=== PATIENT | female | born 1960 | race American Indian/Alaskan Native ===

== ENCOUNTER 2019-04-23 09:30 | Emergency (ER) | payer BC ==
[2019-04-23 10:36] LABS: Basophils % (Auto) 0.3 % (0.0-1.8); Eosinophils # (Auto) 0.1 K/mm3 (0.0-0.4); Eosinophils % (Auto) 1.6 % (0.0-4.3); Hematocrit 32.8 % (30.3-42.9); Hemoglobin 10.9 gm/dl (10.1-14.3); Lymphocytes # (Auto) 2.2 K/mm3 (1.2-5.4); Lymphocytes % (Auto) 31.3 % (13.4-35.0); Mean Corpuscular HGB Conc 33 % (30-34); Mean Corpuscular Volume 86 fl (79-97); Monocytes # (Auto) 0.5 K/mm3 (0.0-0.8); Platelet Count 252 K/mm3 (140-440); Red Blood Count 3.83 M/mm3 (3.65-5.03); Red Cell Distribution Width 15.4 % (13.2-15.2)
[2019-04-23 10:59] LABS: Alanine Aminotransferase 151 units/L (7-56); Albumin 4.5 g/dL (3.9-5); BUN/Creatinine Ratio 19; Blood Urea Nitrogen 13 mg/dL (7-17); Calcium 10.1 mg/dL (8.4-10.2); Hemolysis Index 0
[2019-04-23 11:09] LABS: Bilirubin,Urine NEG (Negative); Blood,Urine NEG (Negative); Color,Urine Yellow (Yellow); Mucus,Urine FEW /HPF; Protein,Urine <15 mg/dL mg/dL (Negative); Urobilinogen,Urine < 2.0 mg/dL (<2.0); WBC,Urine < 1.0 /HPF (0.0-6.0)
[2019-04-23] MEDS ORDERED: ONDANSETRON 4 MG/2 ML INJ IV ONE (11:49)
[2019-04-23] MEDS ORDERED: SODIUM CHLORIDE 0.9% 500 ML 500 ML IV ONE (11:49)
[2019-04-23] MEDS ORDERED: HYDROmorphone 1 MG/1 ML INJ IV ONE ×2 (11:49→14:15)
--- NOTE | 2019-04-23 11:51 | Emergency Department Report ---
ED Abdominal Pain HPI - General Chief Complaint: Abdominal Pain Stated Complaint: ABD PAIN Time Seen by Provider: 04/23/19 11:25 Source: patient, RN notes reviewed, old records reviewed Mode of arrival: Ambulatory Limitations: No Limitations - History of Present Illness Initial Comments: The patient is a 58-year-old female. She is not known to myself previously. She has a history of diabetes, hypertension, pancreatitis and cholecystectomy. Her primary care doctor is Dr. 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 She reports that she does not know where the pancreatitis came from. Today, she presents to the ER with a complaint of epigastric pain, right upper quadrant pain that radiates to the back, nausea, malaise and fatigue. Pain is sharp, throbbing, increases with palpation and decreases with rest and position. No fever or chills, no lower abdominal pain, no urinary symptoms, no chest pain, no shortness of breath, no pulmonary embolism or DVT risk factors. Her pain feels similar to prior episodes of pancreatitis. MD Complaint: abdominal pain -: Gradual Location: epigastric Radiation: back Severity scale (0 -10): 5 Quality: other Consistency: other Improves With: other Worsens With: other Associated Symptoms: nausea, vomiting - Related Data Previous Rx's Medication Instructions Recorded Last Taken Type Metoclopramide [Reglan] 10 mg PO QID PRN #30 tab 04/23/19 Unknown Rx oxyCODONE /ACETAMINOPHEN [Percocet 1 tab PO Q4HR PRN #15 tab 04/23/19 Unknown Rx 5/325] Allergies Allergy/AdvReac Type Severity Reaction Status Date / Time No Known Allergies Allergy Verified 04/23/19 09:33 ED Review of Systems ROS: Stated complaint: ABD PAIN Other details as noted in HPI Constitutional: malaise. denies: fever Eyes: denies: eye discharge ENT: denies: congestion Cardiovascular: denies: chest pain, syncope Gastrointestinal: abdominal pain, nausea, vomiting. denies: hematemesis, melena, hematochezia Genitourinary: as per HPI. denies: dysuria Musculoskeletal: back pain Skin: as per HPI Neurological: as per HPI Psychiatric: as per HPI Hematological/Lymphatic: as per HPI ED Past Medical Hx - Past Medical History Hx Hypertension: Yes Hx Diabetes: Yes - Surgical History Past Surgical History?: Yes Additional Surgical History: gallbladder - Social History Smoking Status: Never Smoker Substance Use Type: None - Medications Home Medications: Home Medications Medication Instructions Recorded Confirmed Last Taken Type Metoclopramide [Reglan] 10 mg PO QID PRN #30 tab 04/23/19 Unknown Rx oxyCODONE /ACETAMINOPHEN [Percocet 1 tab PO Q4HR PRN #15 tab 04/23/19 Unknown Rx 5/325] ED Physical Exam - General Limitations: No Limitations General appearance: alert, in no apparent distress - Head Head exam: Present: atraumatic, normocephalic - Eye Eye exam: Present: normal appearance, EOMI. Absent: nystagmus - ENT ENT exam: Present: normal exam, normal orophraynx, mucous membranes moist, normal external ear exam - Neck Neck exam: Present: normal inspection, full ROM. Absent: tenderness, meningismus - Respiratory Respiratory exam: Present: normal lung sounds bilaterally. Absent: respiratory distress - Cardiovascular Cardiovascular Exam: Present: regular rate, normal rhythm, normal heart sounds. Absent: bradycardia, tachycardia, irregular rhythm, systolic murmur, diastolic murmur, rubs, gallop - GI/Abdominal GI/Abdominal exam: Present: soft, tenderness, normal bowel sounds, other (There is right upper quadrant tenderness and epigastric tenderness). Absent: distended, guarding, rebound, rigid, pulsatile mass - Extremities Exam Extremities exam: Present: normal inspection, full ROM, other (2+ pulses noted in the bilateral upper and lower extremities. There is no palpable cord. negative Homans sign. Muscular compartments are soft. The pelvis is stable.). Absent: pedal edema, calf tenderness - Back Exam Back exam: Present: normal inspection, full ROM. Absent: tenderness, CVA tenderness (R), CVA tenderness (L), paraspinal tenderness, vertebral tenderness - Neurological Exam Neurological exam: Present: alert, other (There is no facial droop. The tongue is midline. Extraocular movements are intact bilaterally. There is 5 out of 5 strength in bilateral upper and lower extremities. Sensation is intact to light touch bilateral upper and lower extremities. ). Absent: motor sensory deficit - Psychiatric Psychiatric exam: Present: normal affect, normal mood - Skin Skin exam: Present: warm, dry, intact, normal color. Absent: rash ED Course Vital Signs 04/23/19 04/23/19 04/23/19 09:36 11:34 11:38 Temperature 98.3 F 98.1 F Pulse Rate 74 67 Respiratory 20 13 Rate Blood Pressure 121/76 Blood Pressure 113/65 [Right] O2 Sat by Pulse 95 97 96 Oximetry 04/23/19 04/23/19 04/23/19 11:45 12:01 12:11 Temperature Pulse Rate 72 69 Respiratory 12 12 18 Rate Blood Pressure 113/65 120/69 Blood Pressure [Right] O2 Sat by Pulse 99 94 Oximetry 04/23/19 04/23/19 04/23/19 12:15 12:31 12:45 Temperature Pulse Rate 66 65 69 Respiratory 11 L 10 L 16 Rate Blood Pressure 120/69 120/69 120/69 Blood Pressure [Right] O2 Sat by Pulse 93 91 88 Oximetry 04/23/19 04/23/19 04/23/19 13:01 13:15 14:20 Temperature Pulse Rate 65 74 Respiratory 13 15 18 Rate Blood Pressure 126/75 126/75 Blood Pressure [Right] O2 Sat by Pulse 94 91 Oximetry - Reevaluation(s) Reevaluation #1: 04/23/19 12:37 Differential diagnosis, including but not limited to: Pancreatitis, choledocholithiasis, hepatitis, pneumonia Assessment and plan: 58-year-old female with history of what sounds to be idiopathic pancreatitis, with similar symptoms x1 week. She is not tachycardic, tachypneic or hypoxic, she denies DVT and pulmonary embolism risk factors and she is low risk by Wells criteria. We will treat her symptoms, replete her magnesium, obtain CT scan of the abdomen pelvis, and we will reassess after data points. Reevaluation #2: 04/23/19 14:36 Laboratory studies, CT scan findings are reviewed and appreciated. I have discussed the case with our bee worker on-call, Dr. Vazquez. We discussed the patient's history, physical, laboratory studies, and CT scan findings. He advises no antibiotics, and given lack of fever, leukocytosis, duration of symptoms (1 week), patient's ability to tolerate liquid feeds, it would be reasonable to have the patient further worked up and evaluated as an outpatient. Went back to reevaluate the patient, and she is still having pain but somewhat improved clinically. She also indicates that her comfort level is improved. Patient is given copy of her CT scan, laboratory studies, and I explained the need to closely follow-up with outpatient gastroenterology for further evaluation and management. She verbalizes understanding. She endorses that she is reliable to return to the emergency room if she develops any change or worsening in her symptoms. ED Medical Decision Making - Lab Data Result diagrams: 04/23/19 10:17 04/23/19 10:17 Vital Signs 04/23/19 04/23/19 11:38 12:11 Temperature 98.1 F Pulse Rate 67 Respiratory 13 18 Rate Blood Pressure 113/65 [Right] O2 Sat by Pulse 96 Oximetry Lab Results 04/23/19 04/23/19 04/23/19 Range/Units 10:00 10:17 10:17 WBC 7.0 (4.5-11.0) K/mm3 RBC 3.83 (3.65-5.03) M/mm3 Hgb 10.9 (10.1-14.3) gm/dl Hct 32.8 (30.3-42.9) % MCV 86 (79-97) fl MCH 28 (28-32) pg MCHC 33 (30-34) % RDW 15.4 H (13.2-15.2) % Plt Count 252 (140-440) K/mm3 Lymph % (Auto) 31.3 (13.4-35.0) % [place] % (Auto) 7.0 (0.0-7.3) % Eos % (Auto) 1.6 (0.0-4.3) % Baso % (Auto) 0.3 (0.0-1.8) % Lymph # 2.2 (1.2-5.4) K/mm3 [place] # 0.5 (0.0-0.8) K/mm3 Eos # 0.1 (0.0-0.4) K/mm3 Baso # 0.0 (0.0-0.1) K/mm3 Seg Neutrophils % 59.8 (40.0-70.0) % Seg Neutrophils # 4.2 (1.8-7.7) K/mm3 Sodium 139 (137-145) mmol/L Potassium 4.0 (3.6-5.0) mmol/L Chloride 100.3 (98-107) mmol/L Carbon Dioxide 23 (22-30) mmol/L Anion Gap 20 mmol/L BUN 13 (7-17) mg/dL Creatinine 0.7 (0.7-1.2) mg/dL Estimated GFR > 60 ml/min BUN/Creatinine Ratio 19 % Glucose 97 (65-100) mg/dL Calcium 10.1 (8.4-10.2) mg/dL Magnesium (1.7-2.3) mg/dL Total Bilirubin 0.60 (0.1-1.2) mg/dL AST 96 H (5-40) units/L ALT 151 H (7-56) units/L Alkaline Phosphatase 460 H (35-129) units/L Total Creatine Kinase (30-135) units/L Total Protein 7.7 (6.3-8.2) g/dL Albumin 4.5 (3.9-5) g/dL Albumin/Globulin Ratio 1.4 % Lipase (13-60) units/L Urine Color Yellow (Yellow) Urine Turbidity Clear (Clear) Urine pH 7.0 (5.0-7.0) Ur Specific [place] 1.011 (1.003-1.030) Urine Protein <15 mg/dl (Negative) mg/dL Urine Glucose (UA) Neg (Negative) mg/dL Urine Ketones Neg (Negative) mg/dL Urine Blood Neg (Negative) Urine Nitrite Neg (Negative) Urine Bilirubin Neg (Negative) Urine Urobilinogen < 2.0 (<2.0) mg/dL Ur Leukocyte Esterase Neg (Negative) Urine WBC (Auto) < 1.0 (0.0-6.0) /HPF Urine RBC (Auto) 1.0 (0.0-6.0) /HPF U Epithel Cells (Auto) < 1.0 (0-13.0) /HPF Urine Mucus Few /HPF 03//20 Range/Units Unknown WBC (4.5-11.0) K/mm3 RBC (3.65-5.03) M/mm3 Hgb (10.1-14.3) gm/dl Hct (30.3-42.9) % MCV (79-97) fl MCH (28-32) pg MCHC (30-34) % RDW (13.2-15.2) % Plt Count (140-440) K/mm3 Lymph % (Auto) (13.4-35.0) % [place] % (Auto) (0.0-7.3) % Eos % (Auto) (0.0-4.3) % Baso % (Auto) (0.0-1.8) % Lymph # (1.2-5.4) K/mm3 [place] # (0.0-0.8) K/mm3 Eos # (0.0-0.4) K/mm3 Baso # (0.0-0.1) K/mm3 Seg Neutrophils % (40.0-70.0) % Seg Neutrophils # (1.8-7.7) K/mm3 Sodium (137-145) mmol/L Potassium (3.6-5.0) mmol/L Chloride (98-107) mmol/L Carbon Dioxide (22-30) mmol/L Anion Gap mmol/L BUN (7-17) mg/dL Creatinine (0.7-1.2) mg/dL Estimated GFR ml/min BUN/Creatinine Ratio % Glucose (65-100) mg/dL Calcium (8.4-10.2) mg/dL Magnesium 1.40 L (1.7-2.3) mg/dL Total Bilirubin (0.1-1.2) mg/dL AST (5-40) units/L ALT (7-56) units/L Alkaline Phosphatase (35-129) units/L Total Creatine Kinase 45 (30-135) units/L Total Protein (6.3-8.2) g/dL Albumin (3.9-5) g/dL Albumin/Globulin Ratio % Lipase 101 H (13-60) units/L Urine Color (Yellow) Urine Turbidity (Clear) Urine pH (5.0-7.0) Ur Specific [place] (1.003-1.030) Urine Protein (Negative) mg/dL Urine Glucose (UA) (Negative) mg/dL Urine Ketones (Negative) mg/dL Urine Blood (Negative) Urine Nitrite (Negative) Urine Bilirubin (Negative) Urine Urobilinogen (<2.0) mg/dL Ur Leukocyte Esterase (Negative) Urine WBC (Auto) (0.0-6.0) /HPF Urine RBC (Auto) (0.0-6.0) /HPF U Epithel Cells (Auto) (0-13.0) /HPF Urine Mucus /HPF - EKG Data -: EKG Interpreted by Al EKG shows normal: sinus rhythm Rate: normal - EKG Data When compared to previous EKG there are: previous EKG unavailable 04/23/19 12:36 Sinus rhythm, 68 bpm, first-degree AV block, Q waves noted in the inferior leads, ME interval prolonged, premature ventricular contractions, poor R wave progression, no prior for comparison, abnormal EKG, not a STEMI - Radiology Data Radiology results: pending, report reviewed, image reviewed Print Report Referring Physician: ANTON TORRES Patient Name: ROCKY DUVALL Date of : 1960 Sex: Female Report Date: 2019-04-23 Report Status: Finalized Findings [facility] [address] [place] [address] Cat Scan Report Signed Patient: ROCKY DUVALL MR#: [id number] : 1960 Acct:[id number] Age/Sex: 58 / F ADM Date: 04/23/19 Loc: ED Attending Dr: Neftali sosa Physician: ANTON TORRES MD Date of Service: 04/23/19 Procedure(s): CT abdomen pelvis w con Accession Number(s): [id number] cc: ANTON TORRES MD CT abdomen pelvis w con INDICATION: MAIN: epigasrtci pain rad to back, pancreatitis TECHNIQUE: All CT scans at this location are performed using the following dose modulation technique: Automated exposure control. Helical slices were obtained through the abdomen and pelvis. 100 cc of Omnipaque 300 is administered. COMPARISON: None available. FINDINGS: Abdomen: No acute abnormality is seen in the lower chest. There is intra and extrahepatic biliary dilatation. Common bile duct measures approximately 13 mm in diameter. There is been prior cholecystectomy. The spleen, adrenal glands, kidneys show no acute abnormality. There is no peripancreatic inflammation. There is dilatation of the pancreatic duct. No mass lesions are seen. There is no adenopathy. Pelvis: There are scattered diverticula throughout the colon. There is sigmoid divert iculosis. There is no obstruction or inflammation. There are no abnormal fluid collections. On review of bone windows, no acute osseous abnormalities are seen. IMPRESSION: 1. There is no obstruction, inflammation, or free air. There are no abnormal fluid collections. There is biliary dilatation. There is dilatation of the pancreatic duct. No discrete mass lesions are seen in the pancreas. Possibility of the distal stricture in the ducts in the possibility of an ampullary lesion is considered in the differential diagnosis. There is no CT evidence of pancreatitis. Signer Name: Damaso Up MD Signed: 04/23/2019 2:06 PM Workstation Name: [id number] Transcribed By: SS Dictated By: Damaso dejesus MD Electronically Authenticated By: Damaso Up MD Signed Date/Time: 04/23/19 1406 DD/ 1402 Critical care attestation.: If time is entered above; I have spent that time in minutes in the direct care of this critically ill patient, excluding procedure time. ED Disposition Clinical Impression: Epigastric abdominal pain Disposition: - TO HOME OR SELFCARE Is pt being admited?: No Does the pt Need Aspirin: No Condition: Stable Additional Instructions: Avoid consumption of Motrin, ibuprofen, Naprosyn, Aleve, alcohol, heavy and/or spicy foods. Do not take metformin for the next 2 days, if patient takes this prescription medication. Take the prescribed nausea medication and pain medication as needed and directed. If taking Percocet for pain, do not drive, consume alcohol, or make important decisions. Follow-up with a bee worker within the next 3 to 5 days. Patient may alternate Tylenol [id number], 650 mg, every 4-6 hours as needed for pain. If taking Percocet for pain, please wait at least 4 hours before taking Tylenol. Return to the emergency room right away with new, worsened or different symptoms, projectile vomiting, change in mental status, confusion, fevers, chills, lethargy, or symptoms not present on the initial emergency room evaluation. Referrals: BONNIE VAZQUEZ MD [Staff Physician] - 3-5 Days ED ALEXANDER MD [Staff Physician] - 3-5 Days [facility] [Provider Group] - 3-5 Days
[2019-04-23] MEDS ORDERED: MAGNESIUM SULFATE 2 GM/50 ML BAG IV ONE (12:21)
[2019-04-23 13:41] VITALS: BP 126/75
--- NOTE | 2019-04-23 14:11 | Cat Scan Report ---
CT abdomen pelvis w con INDICATION: MAIN: epigasrtci pain rad to back, pancreatitis TECHNIQUE: All CT scans at this location are performed using the following dose modulation technique: Automated exposure control. Helical slices were obtained through the abdomen and pelvis. 100 cc of Omnipaque 30 0 is administered. COMPARISON: None available. FINDINGS: Abdomen: No acute abnormality is seen in the lower chest. There is intra and extrahepatic biliary dil atation. Common bile duct measures approximately 13 mm in diameter. There is been prior cholecystecto my. The spleen, adrenal glands, kidneys show no acute abnormality. There is no peripancreatic inflammation. There is dilatation of the pancreatic duct. No mass lesions are seen. There is no adenopathy. Pelvis: There are scattered diverticula throughout the colon. There is sigmoid diverticulosis. There is no obstruction or inflammation. There are no abnormal fluid collections. On review of bone windows, no acute osseous abnormalities are seen. IMPRESSION: 1. There is no obstruction, inflammation, or free air. There are no abnormal fluid collections. There is biliary dilatation. There is dilatation of the pancreatic duct. No discrete mass lesions are seen in the pancreas. Possibility of the distal stricture in the ducts in the possibility of an ampu llary lesion is considered in the differential diagnosis. There is no CT evidence of pancreatitis. Signer Name: Damaso Up MD Signed: 04/23/2019 2:06 PM Workstation Name: [id number]
== END 2019-04-23 14:52 | disposition home or self-care (01) ==
LOC: ED 09:30
DX: R10.13 Epigastric pain (principal); R11.2 Nausea with vomiting, unspecified
CPT/HCPCS: 36415; 74177; 80053; 81001; 82550; 83690; 83735; 85025; 93005; 93010; 96365; 96375; 96376; 99284; J1170; J2405; J3475; J7040; Q9967

== ENCOUNTER 2019-05-16 18:47 | Emergency (ER) | payer OTHER, MEDICARE ==
[2019-05-16] MEDS ORDERED: oxyCODONE /ACETAMINOPHEN 5-325MG TAB PO ONE (20:05)
[2019-05-16] MEDS ORDERED: ONDANSETRON 4 MG ODT TAB PO ONE (20:05)
[2019-05-16] MEDS ORDERED: FAMOTIDINE 20 MG TAB PO ONE (20:06)
--- NOTE | 2019-05-16 20:43 | XRay Report ---
LEFT ANKLE 3 VIEWS INDICATION / CLINICAL INFORMATION: Left ankle pain for 2 days. COMPARISON: None available. FINDINGS: BONES and JOINT(S): No acute fracture or subluxation. No significant arthritis. SOFT TISSUES: No significant abnormality. ADDITIONAL FINDINGS: None. IMPRESSION: 1. No acute findings. Signer Name: Bobby Metz MD Signed: 05/16/2019 8:38 PM Workstation Name: [id number]
--- NOTE | 2019-05-16 21:29 | Emergency Department Report ---
ED Lower Extremity HPI - General Chief Complaint: Abdominal Pain Stated Complaint: SWOLLEN LEFT ANKLE/PANCREATIC ATTACK Source: patient, family Mode of arrival: Ambulatory Limitations: No Limitations - History of Present Illness Initial Comments: Patient is a 58-year-old white female with a history of [id number] diabetes, hypertension, chronic pancreatitis who presented to the ED with complaint of acute onset persistent severe left ankle pain and swelling after she twisted her left ankle while walking down the stairs at home 2 days ago. Patient states that pain is worse with any active range of motion of left ankle or foot. Patient states that she is unable to adequately bear weight on the left ankle and foot because of severe pain in the left ankle. Patient denies head injury, neck injury, back pain, numbness and tingling or weakness of left leg, dizziness, syncope, fall, heavy lifting, nausea and vomiting, shortness of breath and chest pain. MD Complaint: ankle injury (left ankle pain and swelling) -: Sudden, days(s) (2) Injury: Ankle: Left (pain and swelling) Type of Injury: inversion, eversion Place: home Severity: severe Severity scale (0 -10): 8 Improves With: nothing Worsens With: weight bearing, movement, palpation Context: walking, other (twisted left ankle) Associated Symptoms: snap/pop sensation, swelling, able to partially bear weight. denies: numbness, tingling, unable to bear weight - Related Data Previous Rx's Medication Instructions Recorded Last Taken Type Magnesium Oxide 400 mg PO QDAY #30 tablet 04/23/19 Unknown Rx Metoclopramide [Reglan] 10 mg PO QID PRN #30 tab 04/23/19 Unknown Rx oxyCODONE /ACETAMINOPHEN [Percocet 1 tab PO Q4HR PRN #15 tab 04/23/19 Unknown Rx 5/325] Famotidine [Pepcid] 20 mg PO Q12H #60 tablet 05/16/19 Unknown Rx Ibuprofen [Motrin] 600 mg PO Q8H PRN #30 tablet 05/16/19 Unknown Rx tiZANidine [Zanaflex 4mg TAB] 4 mg PO Q8H PRN #18 tablet 05/16/19 Unknown Rx traMADoL [Ultram] 50 mg PO Q6HR PRN #12 tablet 05/16/19 Unknown Rx Allergies Allergy/AdvReac Type Severity Reaction Status Date / Time No Known Allergies Allergy Verified 04/23/19 09:33 ED Review of Systems ROS: Stated complaint: SWOLLEN LEFT ANKLE/PANCREATIC ATTACK Other details as noted in HPI Constitutional: denies: chills, fever Eyes: denies: eye pain, eye discharge, vision change ENT: denies: ear pain, throat pain Respiratory: denies: cough, shortness of breath, wheezing Cardiovascular: denies: chest pain, palpitations Endocrine: no symptoms reported Gastrointestinal: denies: abdominal pain, nausea, diarrhea Genitourinary: denies: urgency, dysuria, discharge Musculoskeletal: joint swelling (left ankle), arthralgia (left ankle ). denies: back pain Skin: denies: rash, lesions Neurological: denies: headache, weakness, paresthesias Psychiatric: denies: anxiety, depression Hematological/Lymphatic: denies: easy bleeding, easy bruising ED Past Medical Hx - Past Medical History Previous Medical History?: Yes Hx Hypertension: Yes Hx Diabetes: Yes Additional medical history: Pancreatitis - Surgical History Past Surgical History?: Yes Additional Surgical History: gallbladder - Social History Smoking Status: Former Smoker Substance Use Type: None - Medications Home Medications: Home Medications Medication Instructions Recorded Confirmed Last Taken Type Magnesium Oxide 400 mg PO QDAY #30 tablet 04/23/19 Unknown Rx Metoclopramide [Reglan] 10 mg PO QID PRN #30 tab 04/23/19 Unknown Rx oxyCODONE /ACETAMINOPHEN [Percocet 1 tab PO Q4HR PRN #15 tab 04/23/19 Unknown Rx 5/325] Famotidine [Pepcid] 20 mg PO Q12H #60 tablet 05/16/19 Unknown Rx Ibuprofen [Motrin] 600 mg PO Q8H PRN #30 tablet 05/16/19 Unknown Rx tiZANidine [Zanaflex 4mg TAB] 4 mg PO Q8H PRN #18 tablet 05/16/19 Unknown Rx traMADoL [Ultram] 50 mg PO Q6HR PRN #12 tablet 05/16/19 Unknown Rx ED Physical Exam - General Limitations: No Limitations General appearance: alert, in no apparent distress - Head Head exam: Present: atraumatic, normocephalic, normal inspection - Eye Eye exam: Present: normal appearance, PERRL, EOMI Pupils: Present: normal accommodation - ENT ENT exam: Present: normal exam, normal orophraynx, mucous membranes moist, TM's normal bilaterally, normal external ear exam - Neck Neck exam: Present: normal inspection, full ROM. Absent: tenderness, meningismus, lymphadenopathy, thyromegaly - Respiratory Respiratory exam: Present: normal lung sounds bilaterally. Absent: respiratory distress, wheezes, rhonchi, chest wall tenderness, accessory muscle use, prolonged expiratory - Cardiovascular Cardiovascular Exam: Present: regular rate, normal rhythm, normal heart sounds. Absent: systolic murmur, diastolic murmur, rubs, gallop - GI/Abdominal GI/Abdominal exam: Present: soft, normal bowel sounds. Absent: tenderness, guarding, rebound, hyperactive bowel sounds, hypoactive bowel sounds, organomegaly - Extremities Exam Extremities exam: Present: normal inspection, tenderness (Palpable left ankle tenderness and mild swelling with limited range of motion due to pain), normal capillary refill, joint swelling. Absent: pedal edema, calf tenderness - Back Exam Back exam: Present: normal inspection, full ROM. Absent: tenderness, CVA tenderness (R), CVA tenderness (L), muscle spasm, paraspinal tenderness, vertebral tenderness - Neurological Exam Neurological exam: Present: alert, oriented X3, CN II-XII intact, normal gait, reflexes normal - Psychiatric Psychiatric exam: Present: normal affect, normal mood - Skin Skin exam: Present: warm, dry, intact, normal color. Absent: rash ED Course Vital Signs 05/16/19 19:26 Temperature 97.8 F Pulse Rate 77 Respiratory 18 Rate Blood Pressure 129/73 O2 Sat by Pulse 94 Oximetry ED Lower Extremity MDM - Radiology Data Radiology results: report reviewed, image reviewed Findings [facility] [address] [place] [address] XRay Report Signed Patient: ROCKY DUVALL MR#: [id number] : 1960 Acct:[id number] Age/Sex: 58 / F ADM Date: 05/16/19 Loc: ED Attending Dr: Ordering Physician: WESTON BRAN Date of Service: 05/16/19 Procedure(s): XR ankle 3+V LT Accession Number(s): [id number] cc: WESTON BRAN Fluoro Time In Minutes: LEFT ANKLE 3 VIEWS INDICATION / CLINICAL INFORMATION: Left ankle pain for 2 days. COMPARISON: None available. FINDINGS: BONES and JOINT(S): No acute fracture or subluxation. No significant arthritis. SOFT TISSUES: No significant abnormality. ADDITIONAL FINDINGS: None. IMPRESSION: 1. No acute findings. Signer Name: Bobby Metz MD Signed: 05/16/2019 8:38 PM Workstation Name: [id number] Transcribed By: BLAISE Dictated By: Bobby Metz MD Electronically Authenticated By: Bobby Metz MD Signed Date/Time: 05/16/192037 DD/ 37 TD/TT: - Medical Decision Making This is a 58-year-old female with a history of chronic pancreatitis, [id number] diabetes, hypertension presented to the ED with complaint of acute onset persistent severe left ankle pain and swelling after twisting the left ankle at home 2 days ago. Patient also states that she has had inte rmittent upper abdominal pain that radiates to the mid posterior thoracic area consistent with her chronic pancreatitis. Patient now states that she would like an MRI done in the ED to rule out any complications from her chronic pancreatitis. Patient however states that this is not why she is here in the ED but for her ankle that was injured since she has an appointment with her GI physician in 2 days time. In the ED, patient is alert and oriented x3 and is not in any distress. Patient was treated for pain in the ED and the left ankle x-ray shows no acute fractures or subluxations. Patient left ankle was splinted with Gordo wrap and on reevaluation, patient's pain is well controlled with medications. Patient was discharged home on muscle relaxants and pain medications and advised to follow-up with her primary care physician in 7 to 10 days for further evaluation. Patient was advised return to the ED immediately if symptoms get worse. Patient was however advised to ensure that she follows up with her GI physician as scheduled in 2 days time for further evaluation of her chronic pancreatitis pain. - Differential Diagnosis Ankle fracture; Muscle strain; muscle spasm; contusion Critical care attestation.: If time is entered above; I have spent that time in minutes in the direct care of this critically ill patient, excluding procedure time. ED Disposition Clinical Impression: Muscle strain of ankle Qualifiers: Encounter type: initial encounter Laterality: left Qualified Code(s): S96.912A - Strain of unspecified muscle and tendon at ankle and foot level, left foot, initial encounter Severe sprain of left ankle Qualifiers: Encounter type: initial encounter Qualified Code(s): S93.402A - Sprain of unspecified ligament of left ankle, initial encounter Disposition: TO HOME OR SELFCARE Is pt being admited?: No Does the pt Need Aspirin: No Condition: Stable Instructions: Muscle Strain (ED), Ankle Sprain (ED) Additional Instructions: The x-ray of your left ankle is unremarkable with no fractures or subluxations. Therefore take pain medication as needed with muscle relaxants, drink plenty fluids and follow-up with your primary care physician in 5 to 7 days for ree valuation or return to the ED immediately if symptoms get worse. Prescriptions: Ibuprofen [Motrin] 600 mg PO Q8H PRN #30 tablet PRN Reason: Pain Famotidine [Pepcid] 20 mg PO Q12H #60 tablet traMADoL [Ultram] 50 mg PO Q6HR PRN #12 tablet PRN Reason: Pain tiZANidine [Zanaflex 4mg TAB] 4 mg PO Q8H PRN #18 tablet PRN Reason: Muscle Spasm Referrals: PRIMARY CARE, [Primary Care Provider] - 3-5 Days Time of Disposition: 21:41 Print Language: STATELESS
[2019-05-17 05:26] VITALS: BP 127/70
== END 2019-05-16 22:05 | disposition home or self-care (01) ==
LOC: ED 18:47
DX: S96.912A Strain of unspecified muscle and tendon at ankle and foot level, left foot, initial encounter (principal); S93.402A Sprain of unspecified ligament of left ankle, initial encounter; I10 Essential (primary) hypertension; E11.9 Type 2 diabetes mellitus without complications; Z79.899 Other long term (current) drug therapy; Z87.891 Personal history of nicotine dependence; X50.1XXA Overexertion from prolonged static or awkward postures, initial encounter; Y93.01 Activity, walking, marching and hiking; Y92.89 Other specified places as the place of occurrence of the external cause; Y99.8 Other external cause status
CPT/HCPCS: Q0162

== ENCOUNTER 2020-04-04 23:35 | Emergency (ER) | payer MEDICARE, OTHER ==
[2020-04-04 23:45] VITALS: BP 142/82
[2020-04-04] MEDS ORDERED: traMADol 50 MG TAB PO ONE (23:45)
[2020-04-04] MEDS ORDERED: ACETAMINOPHEN 500 MG TAB PO ONE (23:45)
[2020-04-04] MEDS ORDERED: predniSONE 20 MG TAB PO ONE (23:45)
--- NOTE | 2020-04-05 00:10 | Emergency Department Report ---
ED General Adult HPI - General Chief complaint: Extremity Injury, Lower Stated complaint: LEFT ANKLE PAIN Source: patient Mode of arrival: Wheelchair Limitations: Physical Limitation - History of Present Illness Initial comments: Patient is a 59-year-old female with a history of gout arthritis. Who presents for sign with pain and swelling to left ankle. Patient states she is on indomethacin at home however not working today. Patient is tolerating p.o. intake without symptoms there is no fever there is no chills, there is no abrasion laceration or bleeding. Pain is rated at 6/10 exacerbated by attempted weight bearing, symptoms are relieved by Rest and offloading. Patient denies new fall injury or trauma. Severity scale (0 -10): 5 - Related Data Previous Rx's Medication Instructions Recorded Last Taken Type Magnesium Oxide 400 mg PO QDAY #30 tablet 04/23/19 Unknown Rx Metoclopramide [Reglan] 10 mg PO QID PRN #30 tab 04/23/19 Unknown Rx oxyCODONE /ACETAMINOPHEN [Percocet 1 tab PO Q4HR PRN #15 tab 04/23/19 Unknown Rx 5/325] Famotidine [Pepcid] 20 mg PO Q12H #60 tablet 05/16/19 Unknown Rx Ibuprofen [Motrin] 600 mg PO Q8H PRN #30 tablet 05/16/19 Unknown Rx tiZANidine [Zanaflex 4mg TAB] 4 mg PO Q8H PRN #18 tablet 05/16/19 Unknown Rx traMADoL [Ultram] 50 mg PO Q6HR PRN #12 tablet 05/16/19 Unknown Rx Acetaminophen/Codeine [Tylenol 1 tab PO Q6H PRN 3 Days #12 tab 04/05/20 Unknown Rx /Codeine # 3 tab] predniSONE [Deltasone] 40 mg PO QDAY 5 Days #10 tab 04/05/20 Unknown Rx Allergies Allergy/AdvReac Type Severity Reaction Status Date / Time No Known Allergies Allergy Verified 04/23/19 09:33 ED Review of Systems ROS: Stated complaint: LEFT ANKLE PAIN Other details as noted in HPI Constitutional: denies: chills, fever Eyes: denies: eye pain, eye discharge, vision change ENT: denies: ear pain, throat pain Respiratory: denies: cough, shortness of breath, wheezing Cardiovascular: denies: chest pain, palpitations Endocrine: no symptoms reported Gastrointestinal: denies: abdominal pain, nausea, diarrhea Genitourinary: denies: urgency, dysuria, discharge Musculoskeletal: denies: back pain, joint swelling, arthralgia Skin: denies: rash, lesions Neurological: denies: headache, weakness, paresthesias Psychiatric: denies: anxiety, depression Hematological/Lymphatic: denies: easy bleeding, easy bruising ED Past Medical Hx - Past Medical History Previous Medical History?: Yes Hx Hypertension: Yes Hx Diabetes: Yes Additional medical history: Pancreatitis. neuropathy. gout - Surgical History Past Surgical History?: Yes Hx Cholecystectomy: Yes Additional Surgical History: gallbladder. hyster - Social History Smoking Status: Never Smoker Substance Use Type: None - Medications Home Medications: Home Medications Medication Instructions Recorded Confirmed Last Taken Type Magnesium Oxide 400 mg PO QDAY #30 tablet 04/23/19 Unknown Rx Metoclopramide [Reglan] 10 mg PO QID PRN #30 tab 04/23/19 Unknown Rx oxyCODONE /ACETAMINOPHEN [Percocet 1 tab PO Q4HR PRN #15 tab 04/23/19 Unknown Rx 5/325] Famotidine [Pepcid] 20 mg PO Q12H #60 tablet 05/16/19 Unknown Rx Ibuprofen [Motrin] 600 mg PO Q8H PRN #30 tablet 05/16/19 Unknown Rx tiZANidine [Zanaflex 4mg TAB] 4 mg PO Q8H PRN #18 tablet 05/16/19 Unknown Rx traMADoL [Ultram] 50 mg PO Q6HR PRN #12 tablet 05/16/19 Unknown Rx Acetaminophen/Codeine [Tylenol 1 tab PO Q6H PRN 3 Days #12 tab 04/05/20 Unknown Rx /Codeine # 3 tab] predniSONE [Deltasone] 40 mg PO QDAY 5 Days #10 tab 04/05/20 Unknown Rx ED Physical Exam - General Limitations: Physical Limitation General appearance: alert, in no apparent distress - Head Head exam: Present: atraumatic, normocephalic - Eye Eye exam: Present: normal appearance, EOMI Pupils: Present: normal accommodation - ENT ENT exam: Present: mucous membranes moist - Neck Neck exam: Present: normal inspection - Respiratory Respiratory exam: Present: normal lung sounds bilaterally. Absent: respiratory distress - Cardiovascular Cardiovascular Exam: Present: regular rate, normal rhythm. Absent: systolic murmur, diastolic murmur, rubs, gallop - GI/Abdominal GI/Abdominal exam: Present: soft, normal bowel sounds - Extremities Exam Extremities exam: Present: normal inspection - Back Exam Back exam: Present: normal inspection, full ROM. Absent: tenderness - Neurological Exam Neurological exam: Present: alert, oriented X3, CN II-XII intact, motor sensory deficit, reflexes normal - Psychiatric Psychiatric exam: Present: normal affect, normal mood - Skin Skin exam: Present: warm, dry, intact, normal color ED Course Vital Signs 04/04/20 04/04/20 23:41 23:45 Temperature 97.8 F Pulse Rate 97 H Respiratory 16 Rate Blood Pressure 142/82 O2 Sat by Pulse 97 Oximetry ED Medical Decision Making - Medical Decision Making Symptoms are improved , plan, DC to home with prescriptions steroids, NSAIDs, patient will follow-up with pain management as scheduled, follow-up with primary care doctor as scheduled, patient given crutches prior to DC tonight with DC to home via POV with . Patient DC'd in stable condition at this time Critical care attestation.: If time is entered above; I have spent that time in minutes in the direct care of this critically ill patient, excluding procedure time. ED Disposition Clinical Impression: Gout of left ankle Qualifiers: Gout etiology: unspecified cause Chronicity: acute Qualified Code(s): M10.9 - Gout, unspecified Disposition: DC-01 TO HOME OR SELFCARE Is pt being admited?: No Does the pt Need Aspirin: No Condition: Stable Instructions: Low-Purine Eating Plan, Arthritis Additional Instructions: Gout Arthritis Prescriptions: predniSONE [Deltasone] 40 mg PO QDAY 5 Days #10 tab Acetaminophen/Codeine [Tylenol /Codeine # 3 tab] 1 tab PO Q6H PRN 3 Days #12 tab PRN Reason: pain Referrals: JOSSELYN NAIR MD [Referring] - 3-5 Days Forms: Work/School Release Form(ED) Time of Disposition: 00:41
== END 2020-04-05 02:18 | disposition home or self-care (01) ==
LOC: ED 23:35
DX: M10.9 Gout, unspecified (principal); I10 Essential (primary) hypertension; E11.9 Type 2 diabetes mellitus without complications; Z90.49 Acquired absence of other specified parts of digestive tract; Z98.890 Other specified postprocedural states; Z79.899 Other long term (current) drug therapy
CPT/HCPCS: 99283; J7512